=== PATIENT | female | born 1965 | race Caucasian/White ===

== ENCOUNTER 2019-02-19 17:04 | Observation (INO) ==
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
[2019-02-19 18:19] LABS: Basophils # (Auto) 0.1 K/mcL (0.0-0.3); Basophils % (Auto) 0.7 % (0.0-2.0); Eosinophils # (Auto) 0.2 K/mcL (0.0-0.7); Eosinophils % (Auto) 2.9 % (0.0-7.0); Hematocrit 32.1 % (36.0-48.0); Hemoglobin 10.5 g/dL (12.0-15.0); Lymphocytes # (Auto) 1.6 K/mcL (1.5-4.8); Lymphocytes % (Auto) 20.6 % (15.5-49.0); Mean Cell Volume 91.2 fL (80.0-100.0); Mean Corpuscular HGB Conc 32.8 g/dL (31.0-36.0); Mean Platelet Volume 7.1 fL (7.4-10.4); Monocytes # (Auto) 0.6 K/mcL (0.1-0.9); Monocytes % (Auto) 7.8 % (1.0-12.0); Platelet Count 307 K/mcL (140-440); RBC 3.52 M/mcL (4.00-5.20); Red Cell Distribution Width 13.6 % (11.5-14.5)
[2019-02-19 18:45] LABS: Lithium Test 1.9 mmol/L
[2019-02-19 18:46] LABS: ALT/SGPT 16 U/l (0-40); AST/SGOT 20 U/l (0-37); Albumin 4.5 gm/dL (3.2-5.2); Albumin/Globulin Ratio 1.7 (1.0-2.3); Alkaline Phosphatase 52 U/L (39-117); Bilirubin,Total < 0.2 mg/dL (0.0-1.0); Blood Urea Nitrogen 39 mg/dl (6-20); Calcium 11.1 mg/dl (8.6-10.4); Carbon Dioxide 22 mmol/L (22-30); Chloride 108 mmol/L (96-108); Creatine Kinase 153 IU/L (24-170); Creatine Kinase MB 2.3 ng/ml (0-2.9); Globulin 2.7 gm/dL (2.2-3.7); Glomerular Filtration Rate 19; Glucose 148 mg/dL (70-105); Myoglobin 126 ng/ml (25-58); Potassium 3.9 mmol/L (3.3-5.1); Sodium 141 mmol/L (133-145)
[2019-02-19] MEDS ORDERED: KETOROLAC 30 MG/ML VIAL IV ONE (19:15)
[2019-02-19] MEDS ORDERED: 0.9 % SODIUM CHLORIDE 1,000 ML IV ONE (19:15)
[2019-02-19] MEDS ORDERED: KETOROLAC 30 MG/ML VIAL ONE (19:36)
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
[2019-02-19] MEDS ORDERED: oxyCODONE HCL 5 MG TABLET PO PRN (20:54)
[2019-02-19] MEDS ORDERED: ONDANSETRON 4 MG/2 ML VIAL IV PRN (20:54)
[2019-02-19] MEDS ORDERED: ACETAMINOPHEN 325 MG TABLET PO PRN (20:54)
[2019-02-19] MEDS ORDERED: NALOXONE HCL 0.4 MG/ML VIAL IV PRN (20:54)
[2019-02-19] MEDS ORDERED: traZODone HCL 50 MG TABLET PO PRN (20:54)
[2019-02-19] MEDS ORDERED: 0.9 % SODIUM CHLORIDE 1,000 ML IV SCH (20:54)
[2019-02-19] MEDS ORDERED: ALBUTEROL SULFATE 2.5 MG/3 ML NEBULIZER NEB PRN (20:54)
[2019-02-19] MEDS ORDERED: HYDROmorphone 2 MG/ML VIAL IV PRN (20:54)
[2019-02-19 21:02] LABS: Appearance,Urine CLEAR; Bacteria,Urine 0 /hpf (0); Bilirubin,Urine NEG (NEG); Color,Urine YELLOW; Culture Indicated,Urine NO; Glucose,Urine (UA) NEGATIVE (NEG); Ketones,Urine NEG (NEG); Leukocyte Esterase,Urine 75 /uL (NEG); Mucus,Urine FEW /hpf (0); Nitrate,Urine NEG (NEG); Protein,Urine NEG (NEG); Specific Gravity,Urine 1.013 (1.000-1.035); Urine Blood NEG mg/dL (<0.03); Urine RBC 1 /hpf (0-1); Urine Squamous Epithelial Cell 1 /hpf (0-4); Urine WBC 6 /hpf (0-4); Urobilinogen,Urine NEG (NEG)
[2019-02-19] MEDS: 0.9 % SODIUM CHLORIDE 10 ML SYRINGE IV SCH (21:28)
[2019-02-19] MEDS: PRAZOSIN 1 MG CAPSULE PO SCH (22:19)
[2019-02-19] MEDS: FOLIC ACID/VITAMIN B COMP W-C 1 TAB TABLET PO SCH (22:20)
[2019-02-19] MEDS: DOCUSATE SODIUM 100 MG CAPSULE PO SCH (22:20)
[2019-02-19] MEDS: QUEtiapine 100 MG TABLET PO SCH (22:20)
[2019-02-19] MEDS: THIAMINE 100 MG TABLET PO SCH (22:20)
[2019-02-19] MEDS: HEPARIN 5,000 UNIT/ML VIAL SQ SCH (22:25)
--- NOTE | 2019-02-20 03:57 | XRay Report ---
CLINICAL INFORMATION: cough COMPARISON: None. FINDINGS: Heart size, mediastinum and pulmonary vessels are normal. Vague focal areas of increased density overlying the both anterior second and third and left fourth and fifth ribs. These either represent healing rib fractures or pulmonary nodules. IMPRESSION: No acute disease. Healing rib fractures versus pulmonary nodules as described. Suggest bilateral rib films Interpreted and Authenticated by: Antonio Johnson 02/20/19
--- NOTE | 2019-02-20 08:22 | Emergency Department Note ---
ED Note Addendum Note Addendum: I discussed this case with the mid-level provider and agree with the assessment and plan.
[2019-02-20] MEDS: CEFUROXIME 500 MG TABLET PO SCH ×2 (08:51→20:45)
[2019-02-20] MEDS: clonazePAM 0.5 MG TABLET PO SCH ×2 (10:13→20:44)
[2019-02-20] MEDS: OLANZapine 10 MG VIAL IM PRN ×2 (10:13→15:26)
[2019-02-20] MEDS: 0.9 % SODIUM CHLORIDE 10 ML SYRINGE IV SCH ×3 (10:14→20:48)
[2019-02-20] MEDS ORDERED: ACETAMINOPHEN 325 MG TABLET PO PRN (10:17)
[2019-02-20] MEDS ORDERED: ALBUTEROL SULFATE 2.5 MG/3 ML NEBULIZER NEB PRN (10:18)
[2019-02-20] MEDS ORDERED: HYDROmorphone 2 MG/ML VIAL IV PRN (10:18)
[2019-02-20] MEDS ORDERED: ONDANSETRON 4 MG/2 ML VIAL IV PRN (10:18)
[2019-02-20] MEDS: DOCUSATE SODIUM 100 MG CAPSULE PO SCH ×3 (10:36→20:45)
[2019-02-20] MEDS: HEPARIN 5,000 UNIT/ML VIAL SQ SCH ×3 (10:37→20:44)
[2019-02-20] MEDS: oxyCODONE HCL 5 MG TABLET PO PRN ×2 (11:31→16:47)
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
[2019-02-20 16:40] LABS: Amphetamine Screen,Urine NONE DETECTED (NONDETECTED); Barbiturate Screen,Urine NONE DETECTED (NONDETECTED); Benzodiazepines Screen,Urine NONE DETECTED (NONDETECTED); Cannabinoid Screen,Urine NONE DETECTED (NONDETECTED); Cocaine Screen,Urine NONE DETECTED (NONDETECTED); Opiate Screen,Urine NONE DETECTED (NONDETECTED); Oxycodone, Urine Screen NONE DETECTED (NONDETECTED); Phencyclidine Screen,Urine NONE DETECTED (NONDETECTED)
[2019-02-20] MEDS: NICOTINE 21 MG PATCH TOPICAL SCH (18:02)
[2019-02-20 18:43] LABS: T4 (Thyroxine) 4.4 ug/dl (5.0-12.0); Thyroid Stimulating Hormone 1.96 uIU/ml (0.27-5.01)
[2019-02-20] MEDS: PRAZOSIN 1 MG CAPSULE PO SCH (20:45)
[2019-02-20] MEDS: QUEtiapine 100 MG TABLET PO SCH (20:46)
[2019-02-20] MEDS: FOLIC ACID/VITAMIN B COMP W-C 1 TAB TABLET PO SCH (20:49)
[2019-02-20] MEDS: THIAMINE 100 MG TABLET PO SCH (20:49)
[2019-02-20] MEDS ORDERED: THIAMINE 100 MG TABLET PO SCH (21:00)
[2019-02-20] MEDS ORDERED: FOLIC ACID/VITAMIN B COMP W-C 1 TAB TABLET PO SCH (21:00)
[2019-02-21 05:56] LABS: Blood Urea Nitrogen 41 mg/dl (6-20); Calcium 10.2 mg/dl (8.6-10.4); Carbon Dioxide 20 mmol/L (22-30); Chloride 114 mmol/L (96-108); Glomerular Filtration Rate 20; Glucose 97 mg/dL (70-105); Potassium 4.4 mmol/L (3.3-5.1); Sodium 143 mmol/L (133-145)
[2019-02-21 06:02] LABS: Lithium Test 1.3 mmol/L
[2019-02-21] MEDS: 0.9 % SODIUM CHLORIDE 10 ML SYRINGE IV SCH ×2 (07:58→15:56)
[2019-02-21] MEDS: CEFUROXIME 500 MG TABLET PO SCH (10:00)
[2019-02-21] MEDS: DOCUSATE SODIUM 100 MG CAPSULE PO SCH (10:00)
[2019-02-21] MEDS: HEPARIN 5,000 UNIT/ML VIAL SQ SCH (10:01)
[2019-02-21] MEDS: clonazePAM 0.5 MG TABLET PO SCH ×2 (10:01→15:56)
[2019-02-21] MEDS: NICOTINE 21 MG PATCH TOPICAL SCH (10:01)
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
== END 2019-02-21 17:16 | disposition home or self-care (01) ==
LOC: MEDSUR 17:04 → ED 17:04 → MEDSUR 20:50
PROVIDERS: ADMIT Internal Medicine; ATTEND Internal Medicine